=== PATIENT | female | born 1960 | race Caucasian/White ===

== ENCOUNTER 2021-09-04 12:42 | Outpatient (CLI) | payer OTHER | END 2021-09-04 12:43 | disposition home or self-care (01) | LOC: ULT 12:42 | PROVIDERS: ATTEND Student in an Organized Health Care Education/Training Program | DX: R01.1 Cardiac murmur, unspecified (principal); I35.0 Nonrheumatic aortic (valve) stenosis; I35.1 Nonrheumatic aortic (valve) insufficiency; I35.8 Other nonrheumatic aortic valve disorders | CPT/HCPCS: 93306 ==

== ENCOUNTER 2024-03-02 14:43 | Observation (INO) | payer OTHER ==
[~2024-03-02 14:43] MED LIST: Iopamidol-370 76% 500 ML MDV (1 ML CHARGE) ONE
[2024-03-02 15:29] LABS: #Basophils 0.05 10x3/uL (0.0-0.2); %Basophils 0.6 % (0.0-1.0); %Eosinophils 2.2 % (0.0-10.0); %Lymphocytes 33.7 % (21.0-51.0); %Monocytes 5.1 % (0.0-10.0); Hematocrit 43.8 % (36.0-47.0); Hemoglobin 14.9 g/dL (12.0-16.0); Mean Corpuscular Hemoglobin 31.5 pg (27.0-31.0); Mean Corpuscular Volume 92.6 fL (78.0-98.0); Mean Platelet Volume 9.2 fL (7.4-10.4); Platelet Count 340 10x3/uL (130-400); RBC Distribution Width 11.9 % (11.5-14.5); Red Blood Cell (RBC) Count 4.73 mill/uL (4.20-5.40)
[2024-03-02 15:45] LABS: ALT (SGPT) 20 U/L (8-55); AST (SGOT) 19 U/L (5-34); Albumin 3.5 g/dL (3.4-4.8); Alkaline Phosphatase 92 U/L (40-110); Anion Gap 13 mmol/L (10-20); BUN (Urea Nitrogen) 12 mg/dL (9.8-20.1); Bilirubin, Total 0.3 mg/dL (0.2-1.2); Calc. Creatinine Clearance 0 mL/min (70-130); Calcium 8.8 mg/dL (7.8-10.44); Carbon Dioxide 20 mmol/L (23-31); Chloride 105 mmol/L (98-107); Estimated GFR 63; Globulin 4.1 g/dL (2.4-3.5); Glucose 137 mg/dL (80-115); INR-International Normal Ratio 0.9; Protein, Total 7.6 g/dL (5.8-8.1); Prothrombin Time 12.2 sec (12.0-14.7); Sodium 134 mmol/L (136-145)
[2024-03-02 15:53] LABS: Troponin I Less than 0.010 ng/mL (< 0.028)
[2024-03-02] MEDS ORDERED: Aspirin Chewable 81 MG TAB ONE (16:59)
[2024-03-02] MEDS ORDERED: Ondansetron PF 4 MG/2 ML Vial IVP PRN (18:18)
[2024-03-02] MEDS ORDERED: Acetaminophen 325 MG TAB PO PRN (18:18)
[2024-03-02] MEDS: Famotidine 20 MG TAB PO SCH (21:15)
[2024-03-02] MEDS: Atorvastatin Calcium 40 MG TAB PO SCH (21:16)
[2024-03-02] MEDS: hydrALAZINE 20 MG/ML VIAL SLOW IVP PRN (21:16)
[2024-03-03 00:23] VITALS: BMI 30.9
[2024-03-03 04:20] LABS: Hemoglobin A1c 7.1 % (4.0-6.0)
[2024-03-03 04:21] LABS: Anion Gap 11 mmol/L (10-20); BUN (Urea Nitrogen) 14 mg/dL (9.8-20.1); Calc. Creatinine Clearance 107 mL/min (70-130); Calcium 8.8 mg/dL (7.8-10.44); Carbon Dioxide 23 mmol/L (23-31); Cardiac Risk 4.5 (Less than 4.5); Chloride 110 mmol/L (98-107); Cholesterol 195 mg/dl (< 200 Desired); Estimated GFR 98; Glucose 183 mg/dL (80-115); HDL Cholesterol 43 mg/dL (>60 Neg Risk); LDL Cholesterol, Calculated 131 mg/dL; Potassium 3.7 mmol/L (3.5-5.1); Sodium 140 mmol/L (136-145); Triglycerides 103 mg/dL (Less than 150)
[2024-03-03] MEDS: Aspirin 81 mg Enteric Coated Tablet PO SCH (10:04)
[2024-03-03] MEDS: Enoxaparin 40 MG (0.4 mL) SYRINGE SC SCH (10:05)
[2024-03-03] MEDS: Lorazepam 2 MG/ML VIAL SLOW IVP PRN (13:39)
[2024-03-03 15:40] VITALS: BP 178/87; TEMP 98.4
[2024-03-04] MEDS ORDERED: Levothyroxine Sodium 25 MCG TAB PO SCH (06:00)
[2024-03-04] MEDS ORDERED: Lisinopril 20 MG TAB PO SCH (09:00)
== END 2024-03-03 18:29 | disposition home or self-care (01) ==
LOC: ERS 14:43 → 2SE 18:35
PROVIDERS: ADMIT Student in an Organized Health Care Education/Training Program; ATTEND Internal Medicine
PROC: B246ZZZ Ultrasonography of Right and Left Heart (ICD-10-PCS; principal; 2024-03-03)
DX: H53.2 Diplopia (principal); H51.0 Palsy (spasm) of conjugate gaze; I10 Essential (primary) hypertension; E03.9 Hypothyroidism, unspecified; F17.200 Nicotine dependence, unspecified, uncomplicated; R01.1 Cardiac murmur, unspecified; Z79.890 Hormone replacement therapy; Z79.899 Other long term (current) drug therapy; E11.9 Type 2 diabetes mellitus without complications; E66.811 Obesity, class 1; I25.10 Atherosclerotic heart disease of native coronary artery without angina pectoris; Z91.018 Allergy to other foods; Z79.82 Long term (current) use of aspirin
CPT/HCPCS: 36415; 70496; 70498; 70551; 71045; 80048; 80053; 80061; 83036; 84443; 84484; 85025; 85610; 85730; 93005; 93306; 94760; 96374; 96375; G0378; J0360; J2060; Q9967

== ENCOUNTER 2024-03-24 05:56 | Inpatient (IN) | payer OTHER ==
[2024-03-24] MEDS ORDERED: Heparin 5,000 UNITS/ML VIAL ONE (06:23)
[2024-03-24] MEDS ORDERED: Protamine Sulfate 50 MG/5 ML VIAL ONE (06:23)
[2024-03-24] MEDS ORDERED: Bupivacaine PF 0.5% 30 ML VIAL ONE (06:24)
[2024-03-24] MEDS ORDERED: EPINEPHrine 1 MG/ML VIAL ONE (06:24)
[2024-03-24] MEDS ORDERED: Scopolamine 1 mg/72 hour Patch ONE (06:38)
[2024-03-24] MEDS ORDERED: CEFAZOLIN 2 GM VIAL ONE (06:38)
[2024-03-24] MEDS ORDERED: Lidocaine 1% MPF 2 ML VIAL ONE (06:38)
[2024-03-24] MEDS ORDERED: Lidocaine 4% PF 5 ML AMP ONE (06:52)
[2024-03-24] MEDS ORDERED: Nitroglycerin 50 MG/250 ML BOT 250 ML ONE (06:53)
[2024-03-24] MEDS ORDERED: Fentanyl 250 MCG/5 ML VIAL ONE (06:53)
[2024-03-24] MEDS ORDERED: PROPOFOL 20 ML ONE (07:10)
[2024-03-24] MEDS ORDERED: PHENYLEPHRINE-NS 100 MCG/ML 10 ML SYRINGE ONE (07:11)
[2024-03-24] MEDS ORDERED: Etomidate 40 MG (20 mL) VIAL ONE (07:32)
[2024-03-24] MEDS ORDERED: Rocuronium Bromide 10 MG/ML (10ML VIAL) ONE (07:42)
[2024-03-24] MEDS ORDERED: Dexamethasone 20 MG/5 ML VIAL ONE (07:48)
[2024-03-24] MEDS ORDERED: Heparin 10,000 UNITS/ 10 ML VIAL ONE (08:06)
[2024-03-24] MEDS ORDERED: ePHEDrine Sulfate 50 MG/10 ML VIAL ONE (08:14)
[2024-03-24] MEDS ORDERED: SUGAMMADEX SODIUM 200 MG/2 ML VIAL ONE (08:18)
[2024-03-24] MEDS ORDERED: Ondansetron PF 4 MG/2 ML Vial ONE (08:18)
[2024-03-24] MEDS ORDERED: Labetalol HCl 100 MG/20 ML VIAL ONE ×2 (08:19→09:13)
[2024-03-24] MEDS ORDERED: Ondansetron HCl/PF 4 MG/2 ML Vial IVP PRN (09:03)
[2024-03-24] MEDS ORDERED: Promethazine HCl 25 MG/ML VIAL IM PRN (09:03)
[2024-03-24] MEDS ORDERED: Morphine Sulfate 2 MG/ML SYRINGE SLOW IVP PRN (09:03)
[2024-03-24] MEDS ORDERED: Ipratropium/Albuterol 3 ML NEB NEB PRN (09:22)
[2024-03-24] MEDS ORDERED: hydrALAZINE 20 MG/ML VIAL SLOW IVP PRN (09:22)
[2024-03-24] MEDS ORDERED: fentaNYL 50 mcg/mL 1 mL Vial SLOW IVP PRN (09:22)
[2024-03-24] MEDS ORDERED: Phenylephrine 40 MG/NS 250 ML 250 ML IVPB PRN (09:22)
[2024-03-24] MEDS ORDERED: Nitroglycerin 50 MG/250 ML BOT 250 ML IVPB PRN (09:22)
[2024-03-24] MEDS ORDERED: Acetaminophen 325 MG TAB PO PRN (09:22)
[2024-03-24] MEDS ORDERED: Ondansetron PF 4 MG/2 ML Vial IVP PRN (09:22)
[2024-03-24] MEDS ORDERED: traMADol HCl 50 MG TAB PO PRN (09:22)
[2024-03-24] MEDS ORDERED: hydrALAZINE 20 MG/ML VIAL ONE (10:11)
[2024-03-24] MEDS: Sodium Chloride 0.9% 1,000 ML IV SCH (11:45)
[2024-03-24 13:10] VITALS: BMI 33.2
[2024-03-24] MEDS: Ipratropium/Albuterol 3 ML NEB NEB SCH (14:41)
[2024-03-24] MEDS: CEFAZOLIN 2 GM in Sodium Chloride 0.9% 100 ML IVPB SCH (18:02)
[2024-03-24] MEDS: Insulin Regular, Human 100 UNIT/ML 10 ML VIAL SC PRN (18:18)
[2024-03-24] MEDS: Atorvastatin Calcium 40 MG TAB PO SCH (20:22)
[2024-03-25 01:22] VITALS: TEMP 97.7
[2024-03-25] MEDS: Levothyroxine Sodium 25 MCG TAB PO SCH (05:56)
[2024-03-25] MEDS ORDERED: Lisinopril 20 MG TAB PO SCH (09:00)
[2024-03-25] MEDS ORDERED: Aspirin 81 mg Enteric Coated Tablet PO SCH (09:00)
[2024-03-25] MEDS ORDERED: BERBERINE CHLORIDE PO SCH (09:00)
[2024-03-25] MEDS ORDERED: Saxagliptin 2.5 MG TAB PO SCH (09:00)
[2024-03-25] MEDS ORDERED: BIOTIN 500 MCG PO SCH (09:00)
[2024-03-25] MEDS ORDERED: Hydrochlorothiazide 25 MG TAB PO SCH (09:00)
== END 2024-03-25 07:10 | disposition home or self-care (01) | DRG 39 ==
LOC: SURG A 05:56 → CCU 12:00 → EDSTATUS 04-21 12:33
PROVIDERS: ADMIT Thoracic Surgery (Cardiothoracic Vascular Surgery); ATTEND Thoracic Surgery (Cardiothoracic Vascular Surgery)
PROC: 3E033XZ Introduction of Vasopressor into Peripheral Vein, Percutaneous Approach (ICD-10-PCS; principal; 2024-03-24)
PROC: 03CH0ZZ Extirpation of Matter from Right Common Carotid Artery, Open Approach (ICD-10-PCS; 2024-03-24)
PROC: 03CK0ZZ Extirpation of Matter from Right Internal Carotid Artery, Open Approach (ICD-10-PCS; 2024-03-24)
PROC: 03UK0KZ Supplement Right Internal Carotid Artery with Nonautologous Tissue Substitute, Open Approach (ICD-10-PCS; 2024-03-24)
PROC: 4A0 Measurement and Monitoring, Physiological Systems, Measurement (ICD-10-PCS; 2024-03-24)
DX: I65.21 Occlusion and stenosis of right carotid artery (principal); E78.5 Hyperlipidemia, unspecified; I10 Essential (primary) hypertension; E03.9 Hypothyroidism, unspecified; E11.9 Type 2 diabetes mellitus without complications; Z85.828 Personal history of other malignant neoplasm of skin; Z87.891 Personal history of nicotine dependence
CPT/HCPCS: 36416; 94640; C1768; J0171; J0360; J0665; J1100; J1642; J1644; J1815; J2405; J2704; J2720; J3010; J7030; J7620